=== PATIENT | female | born 1960 | race Caucasian/White ===

== ENCOUNTER → 2022-02-06 12:31 | Outpatient (CLI) | payer MEDICARE, SELFPAY ==
--- NOTE | 2022-02-06 12:40 | XR_ITS ---
FINAL REPORT CLINICAL HISTORY: shoulder pain, fall FINDINGS: LEFT SHOULDER 3 views of the left shoulder were obtained. There is anterior and inferior subluxation of the humeral head in relation to the bony glenoid. No discrete fracture is identified. There is no soft tissue abnormality. IMPRESSION: Subluxation of the humeral head in relation to the bony glenoid. CT scan could be of value to better assess the relationship of the humeral head 2 the bony glenoid. Reviewed, Interpreted and Dictated by Charanjit Elmore MD Transcribed by Maria Elena Dolan Authenticated and [facility]
== END ==
PROVIDERS: PCP Family Medicine; Visit Provider Orthopaedic Surgery
DX: M25.512 Pain in left shoulder (principal)
CPT/HCPCS: 73030

== ENCOUNTER → 2022-05-14 14:28 | Outpatient (CLI) | payer MEDICARE, SELFPAY ==
--- NOTE | 2022-05-14 14:29 | CT_ITS ---
FINAL REPORT CLINICAL HISTORY: lung cancer screening, smokes less than half pack per day for 40+ yrs, no cancer hx FINDINGS: Low-Dose Chest CT Axial images were obtained from the lung apex to the mid abdomen by computed tomography. Low-dose protocol was utilized. CTDI vol (mGy): 2.90 DLP (mGy-cm): 102.38 There is no axillary adenopathy. There is no hilar or mediastinal adenopathy. The heart is proper size. There is moderate to severe coronary artery calcification. There is no pericardial or pleural effusion. Lung window images demonstrate no suspicious infiltrate or nodule. There are mild changes of emphysema with mild pulmonary scarring. There is a calcified granuloma in the left lower lobe. Limited images of the upper abdomen demonstrate postoperative changes from cholecystectomy. IMPRESSION: No suspicious infiltrate or nodule is identified. Modifier S: Moderate to severe coronary artery calcifications Lung RADS category 1S. Recommend 12 month follow-up low-dose chest CT. Reviewed, Interpreted and Dictated by Weston Rockwell III, MD Transcribed by Maria Elena Dolan Authenticated and [facility]
--- NOTE | 2022-05-14 15:50 | PC.NURSE ---
PFT attempted DLCO not completed. Pt has a broken shoulder, her head and neck is basically stuck in a very sideways angle and she is in a wheel chair. Pt has trouble keeping her body and mouth up to the mouth piece of the PFT machine also she has trouble keeping a tight seal around the filter with her mouth. She gave the best effort she is capable of giving. 6 Minute walk test not completed. Pt on room air SPO2 84%. Pt placed her home oxygen on, she wears 3.5 lpm, SPO2 96%. Pt is unable to walk to complete walk test.
== END ==
PROVIDERS: PCP Family Medicine; Visit Provider Internal Medicine Pulmonary Disease
DX: R06.09 Other forms of dyspnea (principal); Z87.891 Personal history of nicotine dependence; Z12.2 Encounter for screening for malignant neoplasm of respiratory organs
CPT/HCPCS: 71271; 94060; 94726; 94729

== ENCOUNTER → 2022-05-19 10:11 | Outpatient (CLI) | payer MEDICARE, SELFPAY ==
--- NOTE | 2022-05-19 10:13 | CA_ITS ---
APPROVED REPORT EXAM: Comprehensive 2D, Doppler, and color-flow Echocardiogram Sap Sd Analyst: Maine Harris CRT Ht: 5 ft 6 in Wt: 118lbs BSA: 1.60 BP: 130/83 mmHg Indications: Pre-Op Clavicle surgery, pHtn, abn ekg, stents, COPD, HTN, HLD, Smoker, home O2, 2D Dimensions LVOT 1.61 cm (M/F) 1.5-2.5 LA Volume 20.70 mL LA Volume Index 12.94 mL/m2 (M/F) 16-34 M-Mode Dimensions RVDd 1.91 cm (0.9-2.6) LA Diam 2.11 cm (1.9-4.0) LVDd 4.16 cm (3.5-5.7) Ao Diam 3.57 cm (2.0-3.7) LVDs 2.92 cm (3.5-5.7) IVSd 1.38 cm (0.6-1.1) PWd 0.74 cm (0.6-1.1) EF (Teich) 57.30% FS 29.80% EDV (Teich) 76.80 mL TAPSE 1.54 (<1.7) ESV (Teich) 32.80 mL LV Diastology E Decel Time 220.00 (160-240 msec) E/A Ratio 0.5 MED E' 6.50 (< 7 cm/sec) MED A' 11.50 cm/s E'/MED E' Ratio 6.09 (>14) LAT E' 5.90 (<10 cm/sec) LAT A' 8.10 cm/s E/LAT E' Ratio 6.71 (>14) Aortic Valve AO Peak GR. 5.50 mmHg Mitral Valve MV E Max Kodak. 40.00 (40-130 cm/s) MV A Velocity 84.00 (40-130 cm/s) E/A Ratio 0.47 MV Decel. Time 220.00 (160-240 ms) MV PHT 64.00 ms Pulmonary Valve PV Peak Velocity 86.00 (50-150 cm/s) Tricuspid Valve TR P. Velocity 173.00 cm/s RAP Estimate 10.00 mmHg RVSP 21.90 mmHg Left Ventricle Technically difficult study because of the patient factors and poor acoustic windows. Left atrium is mildly enlarged, left ventricle is normal size mild concentric left ventricular hypertrophy, estimated ejection fraction 45%, there is abnormal septal motion, grade 1 diastolic dysfunction seen without tissue Doppler evidence of late left atrial pressure. Right Ventricle Right atrium and right ventricle are mildly enlarged with normal contractility. Aortic Valve Aortic valve is minimally thickened and fibrosed there is no aortic stenosis or aortic insufficiency. Mitral Valve Mitral valve is grossly normal, there is trace mitral regurgitation. Tricuspid Valve Tricuspid valve grossly normal, there is trace tricuspid regurgitation, tricuspid regurgitation jet velocity is inadequate for calculation of the right ventricular systolic pressure. Pulmonic Valve Pulmonic valve is poorly visualized. Great Vessels Aortic root is normal size. Inferior vena cava normal 7 normal inspiratory collapse. Pericardium No significant pericardial effusion noted. Conclusion 1. Mild biatrial enlargement, normal left ventricular size, mild concentric left ventricular hypertrophy, estimated ejection fraction 45%, there is abnormal septal motion, grade 1 diastolic dysfunction seen without tissue Doppler evidence of raise left atrial pressure. 2. Mildly enlarged right ventricle with normal contractility. 3. Trace mitral and tricuspid regurgitation. 4. No significant pericardial effusion noted. 5. Inferior vena cava is normal size with normal inspiratory collapse. Electronically signed by : Jose Cruz Floyd MD 05/19/2022 20:45:45
== END ==
PROVIDERS: PCP Family Medicine; Visit Provider Nurse Practitioner Family
DX: F17.200 Nicotine dependence, unspecified, uncomplicated (principal); I25.10 Atherosclerotic heart disease of native coronary artery without angina pectoris; J44.9 Chronic obstructive pulmonary disease, unspecified; R06.09 Other forms of dyspnea; Z01.810 Encounter for preprocedural cardiovascular examination
CPT/HCPCS: 93306

== ENCOUNTER → 2022-05-19 12:44 | Outpatient (POV) | payer MEDICARE, SELFPAY ==
--- NOTE | 2022-05-19 13:11 | EXP.PAIN.OV ---
HPI Data of Consult Patient: new to practice Consult date: 05/19/22 Requesting Physician: Kaylan Dawson APRN Primary Care Provider: Leonora Black Consult Narrative History of present illness: Ms. Sykes is a 61 year old female who presents today as a new patient. She is a referral from Dr. Black' office. Today she rates her pain a 7 out of 10. Patient states her pain is all in her neck and left shoulder. Patient states in January she got up in the middle of night and was on oxygen and that she believes she got tangled up in the cord and fell. Patient did hit a side table that ended up coming down onto her. Patient did end up fracturing a couple of ribs along with her clavicle and transverse process. Patient states she continues to experience significant pain and describes this as a constant pulling, aching sensation that is worse with increased activity or range of motion. Patient states that she cannot touch her shoulder without having extensive pain and that even clothing aggravates it. Patient has been to see Dr. Dawson here at [facility] who states he is planning on proceeding forward with a surgical intervention. Patient does have a significant pulmonology and cardiac history and needs clearance in order to proceed forward with this option. Patient was ordered a stress test and echocardiogram however she states that she went to go to that appointment today and was told it would be 3 hours so she did have to reschedule it. She does state the date is now May 26 for these test. Patient is currently prescribed pregabalin 100 mg 3 times a day, ropinirole 1 mg daily, Percocet 10 mg 4 times a day and Zanaflex. Patient denies any side effects from these medications. She does state that these pills are not touching her pain symptoms. She states she did have a recent bout of pneumonia and was not given steroids due to her upcoming surgery and concerned that it might postpone her treatment. Her she does present today in wheelchair with continuous oxygen on. [facility] is [phone]. Its been reviewed and appropriate. CC: Kaylan Dawson APRN [facility] Disclaimer: The information contained in this section may have been updated after the patient was seen, as this information can be updated by other users. Medical History (Updated 05/19/22 @ 13:44 by Kaylan Dawson APRN) Arteriosclerosis of coronary artery CAD (coronary atherosclerotic disease) Cardiomyopathy Chest pain at rest CHF (congestive heart failure) Chronic respiratory failure Chronic respiratory failure with hypoxia COPD (chronic obstructive pulmonary disease) COPD mixed type COPD mixed type COPD with exacerbation Dyspnea on exertion Dyspnea on exertion Edema Encounter for pre-operative cardiovascular clearance Encounter for screening for malignant neoplasm of lung in current smoker with 30 pack year history or greater Essential (primary) hypertension Exercise hypoxemia Gastro-esophageal reflux disease without esophagitis History of tobacco abuse Hyperlipidemia Hypertension Pulmonary hypertension Right axis deviation Screening for malignant neoplasm of respiratory organ Smoking greater than 30 pack years Subcutaneous nodules Tobacco abuse disorder Tobacco dependence syndrome Surgical History History of section History of tonsillectomy History of total hysterectomy Hx of cholecystectomy Status post arthroscopy of hip Family History Other Cancer Coronary artery disease Hypertension Social History Smoking Status: Current every day smoker alcohol intake: never current occupational status: disabled Travel in the last 8 weeks: None Review of Systems Review of Systems Review of systems:: pertinent systems reviewed and negative unless documented below Review of systems (narrative):
[2022-05-19 13:23] VITALS: BP 120/69; PULSE 87; RESP 18; O2SAT 97; BMI 18.6
== END ==
PROVIDERS: PCP Family Medicine; Visit Provider Nurse Practitioner Family
DX: M54.12 Radiculopathy, cervical region (principal); M54.2 Cervicalgia; M79.18 Myalgia, other site; M25.512 Pain in left shoulder; S22.49XA Multiple fractures of ribs, unspecified side, initial encounter for closed fracture; S42.009A Fracture of unspecified part of unspecified clavicle, initial encounter for closed fracture
CPT/HCPCS: 93306; 99202; G0463

== ENCOUNTER → 2022-05-26 12:54 | Outpatient (CLI) | payer MEDICARE, SELFPAY ==
--- NOTE | 2022-05-26 12:54 | NM_ITS ---
APPROVED REPORT Exam: Nuclear Stress Test Indication: short of breath5 Patient Location: Outpatient Stress Tech: Ginger Harris VT Tech:ROCCO Salinas RT(R)(N) Ht: 5 ft 7 in Wt: 115 lbs Bra Size: a HR: 74 bpm BP: 127/69 mmHg BSA: 1.60 m2 TID: 1.00 BMI: 18.0 History: short of breath Procedure: Patient received 0.4 mg of intravenous Lexiscan, resting heart rate 74 bpm, resting blood pressure 127/69 mmHg, with Lexiscan maximum heart rate achieved was 84 bpm which is Less than 85 % of the maximum predicted heart rate and blood pressure was 129/69 mmHg. With Lexiscan, patient denied any complaint of chest pain. The patient is not able to lay on her belly for prones images. Electrocardiogram Sting electrocardiogram shows sinus rhythm, with Lexiscan there is less than 1.[address] segment depression noted from the baseline EKG. The EKG portion of the Lexiscan is nondiagnostic. Cardiac Stress and Resting SPECT Images: Cardiac Stress and Resting SPECT images were obtained using technetium 99m Myoview 31.1 mCi stress and 10.08 mCi at rest. Gated SPECT analysis of segmental wall motion and calculation of the ejection fraction also done. Prone images were not obtained. Cardiac stress and rest SPECT images show uniform myocardial activity without segmental perfusion abnormality, computer derived ejection fraction is 45% with no regional wall motion abnormality, right ventricle is normal size and contractility. Conclusion: 1. The EKG portion of the Lexiscan is nondiagnostic. 2. No scintigraphic evidence of reversible ischemia seen, computer derived ejection fraction is 45% with no regional wall motion abnormality, right ventricle is normal size and contractility. 3. Normal Lexiscan Myoview study. Electronically signed by : Jose Cruz Floyd MD 05/26/2022 16:20:43
--- NOTE | 2022-05-26 14:14 | CA_ITS ---
APPROVED REPORT Exam: Pharmacologic Technologist: ,, Ht: 5 ft 7 in Wt: 115 lbs BSA: 1.60 m2 HR: 65 bpm BP: 133/79 mmHg Medical History Medications: Lisinopril,,,,, Omeprazole,,,,, Aspirin,,,,, Vitamin D3,,,,, Atorvastatin,,,,, Lyrica,,,,, Carvedilol,,,,, Flonase,,,,, Ropinirole,,,,, PERCOCET,,,,, Albuterol,,,,, Montelukast,,,,, Stress Test Details Test: LEXISCAN Reason for pharmacologic stress test: physical limitation. HR Resting HR: 74 bpm Max Heart Rate (APMHR): 159.443220 bpm Max HR Achieved: 84 bpm Target HR (85% APMHR): 135.841753 bpm % of APMHR: 52.83 Recovery HR: 74 bpm BP Resting BP: 127/69 mmHg Max BP: 129/69 mmHg Recovery BP: 127.0/69.0 mmHg ECG Resting ECG: SR Clinical Exercise duration: 00:05 min Highest Stage Achieved: Stress ECG Conclusion Symptoms: SOA w/ Lexiscan. No chest pain. Arrhythmias/Ectopy: None ST-T Changes: <1.5mm ST Segment depression. Test Summary REST 05:01 . . 74 . 127/ 69 . . Stage 1 00:05 . . 74 . . . Stop exercise at 00:05 RECOVERY 00:16 . . 82 . . . . Electronically signed by : Jose Cruz Floyd MD 05/26/2022 15:21:03
== END ==
LOC: RAD 12:54
PROVIDERS: PCP Family Medicine; Visit Provider Nurse Practitioner Family
DX: F17.200 Nicotine dependence, unspecified, uncomplicated (principal); I25.10 Atherosclerotic heart disease of native coronary artery without angina pectoris; J44.9 Chronic obstructive pulmonary disease, unspecified; R06.09 Other forms of dyspnea; Z01.810 Encounter for preprocedural cardiovascular examination
CPT/HCPCS: 78452; 93017

== ENCOUNTER 2022-07-07 08:43 | Day surgery (SDC) | payer MEDICARE, SELFPAY ==
[2022-07-07] VITALS (12 sets, daily range): BP systolic 96–132; BP diastolic 57–74; PULSE 59–74; RESP 16–20; TEMP 36.1; O2SAT 4–100; BMI 17.9
--- NOTE | 2022-07-07 | IR_ITS ---
APPROVED REPORT Patient Location: Outpatient Door To Door Lead Generation: ROCCO Lynn RT (R) PROCEDURES Left heart catheterization Left ventriculogram Selective coronary angiogram INDICATION Preoperative evaluation, Known coronary artery disease, Abnormal echocardiogram, Worsening dyspnea Informed consent was obtained prior to the procedure. COMPLICATIONS None Estimated Blood Loss: Less than 10 ml TECHNIQUE One percent lidocaine used to anesthetize the right anterior aspect of the wrist. The right radial artery was accessed via the Seldinger technique. A 6 Croatian sheath was placed in the right radial artery. 150 mg magnesium sulfate, 800 mcg of nitroglycerin, 1mg Lidocaine and 5000 U Heparin were given through the arterial sheath. The papa catheter was also used to perform left heart catheterization, left ventriculogram and selective coronary angiogram. During the cardiac catheterization 800 mcg of intracoronary nitroglycerin was administered into the right coronary artery. At the end of the procedure the apparatus was removed the sheath was removed and hemostasis was achieved using TR banding patient was transferred to the postop putting in stable condition ANGIOGRAPHIC RESULTS The left main artery Normal The left anterior descending artery Has proximal 10% luminal irregularities while the mid vessel has a concentric 70% stenosis at a 2.25 mm segment distal to the third diagonal artery. The LAD is long and wraps the apex The circumflex artery Is nondominant and has proximal 10% luminal irregularities with mid vessel 10 to 20% luminal irregularities The right coronary artery Is a dominant vessel and has a proximal eccentric 40 to 50% stenosis followed by widely patent proximal to mid vessel stent with excellent distal transitioning The PACHCEO ventriculogram reveals Normal to slightly hyperdynamic ejection fraction at 65 to 70% The left ventricular end-diastolic pressure 20 mmHg IMPRESSION Coronary disease as described above most notably with a moderate to severe stenosis in the mid LAD which could be stented however stenting will not change patient's perioperative cardiac risk stratification and will only postpone the surgery therefore I do not recommend stenting this vessel. Patient dyspnea most likely stems from pulmonary etiologies. Pulmonary consult is pending Normal slightly hyperdynamic ejection fraction Mildly elevated LVEDP PLAN 1. Continue medical management for coronary disease 2. At some point the right coronary artery and LAD will likely require revascularization however it is unlikely that these lesions are producing angina 3. Treat diastolic dysfunction 4. Continue with pulmonology consult as patient's dyspnea likely stems from pulmonary etiology with ongoing tobacco usage and known COPD 5. Aggressive risk factor modification Electronically signed by : Jefferson Regan MD 07/07/2022 12:26:36
[2022-07-07 09:19] LABS: Basophils % 0.5 % (0.1-2.0); Eosinophils # 0.1 K/mm3 (0.0-0.4); Eosinophils % 1.5 % (0.1-12.0); Hematocrit 37.9 % (37.0-47.0); Lymphocytes # 1.5 K/mm3 (0.7-4.5); Lymphocytes % 18.7 % (10-50); Mean Corpuscular HGB Conc 31.7 g/dL (31.8-35.4); Mean Corpuscular Hemoglobin 24.1 pg (27.0-31.2); Mean Platelet Volume 9.1 fl (7.4-10.4); Monocytes # 0.6 K/mm3 (0.1-1.0); Monocytes % 7.4 % (1.7-9.3); Neutrophils # 5.9 K/mm3 (1.8-7.8); Neutrophils % 71.8 % (37.0-80.0); Platelet Count 269 K/mm3 (142-424); Red Blood Count 4.99 M/mm3 (4.20-5.40); Red Cell Distribution Width 14.7 % (11.5-17.5); White Blood Count 8.2 K/mm3 (4.8-10.8)
[2022-07-07 09:20] LABS: Chloride 91 mmol/L (98-107); Potassium 4.1 mmoL/L (3.5-5.1); Sodium 132 mmol/L (136-145)
[2022-07-07 09:23] LABS: Anion Gap 8.1 mEq/L (5-15); Blood Urea Nitrogen 8 mg/dl (7-17); Carbon Dioxide 37 mmol/L (22.0-30.0); Creatinine Clearance Estimated 47 mL/min (50-200); Estimated Glomerular Filt Rate 102 ml/min (>60); GFR (African American) 123 ML/MIN (>60)
[2022-07-07 09:24] LABS: Calcium 9.2 mg/dl (8.4-10.2); Glucose 98 mg/dl (74-100)
== END 2022-07-07 14:19 | disposition home or self-care (01) ==
PROVIDERS: PCP Family Medicine; Visit Provider Internal Medicine
DX: R93.1 Abnormal findings on diagnostic imaging of heart and coronary circulation (principal); I25.118 Atherosclerotic heart disease of native coronary artery with other forms of angina pectoris; Z95.5 Presence of coronary angioplasty implant and graft; J44.9 Chronic obstructive pulmonary disease, unspecified; F17.210 Nicotine dependence, cigarettes, uncomplicated; Z79.899 Other long term (current) drug therapy; Z79.01 Long term (current) use of anticoagulants; I11.0 Hypertensive heart disease with heart failure; I42.9 Cardiomyopathy, unspecified; I50.9 Heart failure, unspecified; I27.20 Pulmonary hypertension, unspecified; E78.5 Hyperlipidemia, unspecified
CPT/HCPCS: 80048; 85025; 93458; 99152; C1725; C1769; J1644; Q9967

== ENCOUNTER → 2022-08-19 12:53 | Outpatient (CLI) | payer MEDICARE, SELFPAY ==
--- NOTE | 2022-08-19 12:59 | XR_ITS ---
FINAL REPORT CLINICAL HISTORY: lt shoulder pain, fell jan 2022, upcoming shoulder sx FINDINGS: LEFT SHOULDER Four views demonstrate a chronic fracture of the distal clavicle with inferior displacement of the distal fragment as well as the scapula. There are multiple chronic appearing posterior rib fractures present as well. No dislocation is identified. No soft tissue abnormality is seen. IMPRESSION: Chronic fracture of the distal clavicle with inferior displacement of the distal fragment as well as the scapula. Reviewed, Interpreted and Dictated by Weston Rockwell III, MD Transcribed by Azra Michelle Authenticated and [facility]
== END ==
LOC: RAD 12:56
PROVIDERS: PCP Family Medicine; Visit Provider Orthopaedic Surgery
DX: M25.512 Pain in left shoulder (principal)
CPT/HCPCS: 73030

== ENCOUNTER → 2022-11-17 15:23 | Outpatient (POV) | payer MEDICARE, SELFPAY ==
--- NOTE | 2022-11-17 15:53 | EXP.PAIN.SOA ---
[facility] Pain Management SOAP Note Subjective:: Patient is a pleasant 62-year-old female who presents today for follow-up. We are currently treating the patient for chronic neck pain, degenerative disc disease of cervical spine with cervical radiculopathy symptoms, left shoulder pain, left clavicle fracture, myofascial pain, rib fractures. Today she rates her pain a 7 out of 10. Patient denies any new trauma or injury. She does state that the surgery that she was scheduled to have to repair her clavicle fracture was canceled due to her current health. Patient states that the doctor did not think it was worth the increased risk. Patient does state from our last visit that the compounding cream does provide significant improvement. Patient states that she is currently managed with oxycodone 10 mg 3 times a day, pregabalin 100 mg 3 times a day and Flexeril 10 mg 3 times a day from her primary care provider. She does state that the doctor did state that she could no longer prescribe the oxycodone and was recommending she talk to our office about taking over this prescription. Patient has tried Percocet and hydrocodone in the past with minimal relief. She states the muscle relaxer she only takes a quarter of the tablet due to increased drowsiness. She does state that that will help her sleep. Patient does have a significant pulmonary and cardiac history and cannot tolerate any NSAIDs due to this. Her [place] is [phone]. Its been reviewed and appropriate. Review of Systems: General: No recent weight changes, no fever, no sleep disturbances Respiratory: No cough, no shortness of air, no recurring pulmonary infections Cardiovascular/peripheral vascular: No chest pain, no palpitations, no edema, no shortness of breath Gastrointestinal: No new onset incontinence, normal bowel movements reported Genitourinary: No new onset incontinence Musculoskeletal: Neck pain, left shoulder pain Psychiatric: [Normal mood/affect] Neurological: [Denies weakness in extremities], [denies balance issues] Objective:: Physical Exam: General: Alert and oriented x3, no acute distress, pleasant and cooperative Lungs: Respirations even and unlabored, symmetrical chest expansion Eyes: PERRL Musculoskeletal: Flexion and extension of cervical [spine] somewhat guarded secondary to pain, [antalgic gait noted] point tenderness noted along left rhomboid/scapular and left trapezius muscles Neurological: Speech clear, no gross sensory deficit Assessment:: Degenerative disc disease of cervical spine with cervical radiculopathy symptoms, left shoulder pain, left clavicle fracture, myofascial pain, rib fractures, chronic neck pain, chronic pain syndrome Plan:: Patient continues to experience significant pain in her neck and left shoulder related to a previous fall that caused a clavicle fracture along with rib fractures. I have discussed with the patient that due to her limited range of motion of her cervical spine along with her left shoulder she may benefit from a left suprascapular nerve block. Risk and benefits were explained to the patient and she would like to proceed forward with this plan of care. We will send in a prescription of oxycodone 10 mg 3 times a day and provide a 1 month supply of this medication. We will plan on weaning the patient down over the next few months. Patient will be scheduled for a left suprascapular nerve block. Patient has been advised of risks of oversedation with the prescribed medication. Narcan has been offered to the patient in the event of oversedation. Patient has been advised that a family member should also be educated regarding administration of Narcan. Patient has been instructed to contact the clinic with any concerns before the next appointment. Dr. Palmer has reviewed this note and agrees with this plan of care. This note was dictated using voice recognition software and make contain errors or omissions. [facility] Disclaimer: The information cont
[2022-11-17 16:00] VITALS: BP 128/82; PULSE 78; RESP 20; BMI 18.4
== END | disposition home or self-care (01) ==
PROVIDERS: PCP Family Medicine; Visit Provider Nurse Practitioner Family
DX: M50.10 Cervical disc disorder with radiculopathy, unspecified cervical region (principal); M25.512 Pain in left shoulder; S42.002S Fracture of unspecified part of left clavicle, sequela; M79.10 Myalgia, unspecified site; S22.49XS Multiple fractures of ribs, unspecified side, sequela; G89.4 Chronic pain syndrome
CPT/HCPCS: 99212; G0463

== ENCOUNTER → 2022-11-21 13:39 | Outpatient (CLI) | payer MEDICARE, SELFPAY ==
[2022-11-21 14:36] LABS: Amphetamine/Metha Screen,Urine Negative ng/ml (<1000); Barbiturates Screen,Urine Negative ng/ml (<200)
[2022-11-21 14:37] LABS: Benzodiazepines Screen,Urine Negative ng/ml (<200)
[2022-11-21 14:38] LABS: Cannabinoid Screen,Urine Negative ng/ml (<50)
[2022-11-21 14:40] LABS: Cocaine Screen,Urine Negative ng/ml (<300); Methadone Screen,Urine Negative ng/ml (<300)
[2022-11-21 14:44] LABS: Opiate Screen,Urine Negative ng/ml (<300)
[2022-11-21 14:45] LABS: Phencyclidine Screen,Urine Negative ng/ml (<25)
[2022-12-02 04:35] LABS: Opiates Negative (Cutoff=100); Oxycodone (GC/MS) 1200 ng/mL (Cutoff=100); Oxymorphone (GC/MS) 402 ng/mL (Cutoff=100)
== END ==
LOC: LAB 13:40
PROVIDERS: PCP Anesthesiology; Visit Provider Anesthesiology
DX: Z79.891 Long term (current) use of opiate analgesic (principal)
CPT/HCPCS: 80183; 80305; 80361; 80365; G0480

== ENCOUNTER 2022-11-25 12:58 | Day surgery (SDC) | payer MEDICARE, SELFPAY ==
[2022-11-25 13:02] VITALS: BP 106/59; PULSE 73; RESP 18; TEMP 36.6; O2SAT 99; BMI 16.9
[2022-11-25 13:25] VITALS: BP 113/65; PULSE 79; RESP 18; O2SAT 99
--- NOTE | 2022-11-25 13:33 | EXP.PAIN.PRO ---
Procedure Date: 11/25/22 Time: 13:30 Anesthesiologist:: Kwasi Lopez CRNA Complications:: None Pre-procedure Diagnosis:: Degenerative osteoarthritis left shoulder. Left clavicle fracture. Chronic left shoulder pain Post-procedure Diagnosis:: Same. Indications for Procedure:: Patient is a pleasant 62-year-old female who presents today for follow-up. We are currently treating the patient for chronic neck pain, degenerative disc disease of cervical spine with cervical radiculopathy symptoms, left shoulder pain, left clavicle fracture, myofascial pain, rib fractures. Today she rates her pain a 7 out of 10. She does state that the surgery that she was scheduled to have to repair her clavicle fracture was canceled due to her current health. Patient states that the doctor did not think it was worth the increased risk. Procedure Details:: Details of the procedure were explained to the patient. The patient taken the procedure room placed in the sitting position. The area over the left scapula was cleansed using chlorhexidine as a cleansing solution. Using a 25-gauge inch and half needle the superior lateral border of the scapula was injected with 10 cc of a solution containing 5 cc of 0.25% Marcaine +5 cc of 1% lidocaine and 40 mg of Depo-Medrol. Patient tolerated procedure without difficulty. There are no complications. Plan and Disposition:: Patient was discharged without incident. Patient was reevaluated 10 minutes post procedure. She reports 0 pain in the left shoulder at this time.
== END 2022-11-25 13:25 | disposition home or self-care (01) ==
LOC: SC.PAINP 13:00
PROVIDERS: PCP Anesthesiology; Visit Provider Nurse Anesthetist, Certified Registered
DX: M19.012 Primary osteoarthritis, left shoulder (principal); S42.002D Fracture of unspecified part of left clavicle, subsequent encounter for fracture with routine healing; M25.512 Pain in left shoulder; G89.29 Other chronic pain; M50.10 Cervical disc disorder with radiculopathy, unspecified cervical region
CPT/HCPCS: 64418; J1040

== ENCOUNTER → 2022-12-15 13:30 | Outpatient (POV) | payer MEDICARE, SELFPAY ==
[2022-12-15 13:40] VITALS: BP 145/70; PULSE 99; RESP 20; O2SAT 98; BMI 16.9
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
== END | disposition home or self-care (01) ==
PROVIDERS: PCP Family Medicine; Visit Provider Nurse Anesthetist, Certified Registered
DX: M50.10 Cervical disc disorder with radiculopathy, unspecified cervical region (principal); M25.512 Pain in left shoulder; M79.18 Myalgia, other site; G89.4 Chronic pain syndrome; Z99.3 Dependence on wheelchair
CPT/HCPCS: 99212; G0463

== ENCOUNTER 2022-12-30 10:44 | Day surgery (SDC) | payer MEDICARE, SELFPAY ==
[2022-12-30 11:04] VITALS: BP 122/77; PULSE 78; RESP 16; TEMP 36.4; O2SAT 98; BMI 16.6
[2022-12-30 11:22] VITALS: BP 131/52; PULSE 77; RESP 21; O2SAT 96
[2022-12-30 11:24] VITALS: BP 131/52; PULSE 77; RESP 18; O2SAT 96
[2022-12-30 11:30] VITALS: BP 120/77; PULSE 75; RESP 18; O2SAT 98
--- NOTE | 2022-12-30 12:00 | EXP.PAIN.PRO ---
Procedure Date: 12/30/22 Time: 11:44 Anesthesiologist:: Kwasi Lopez CRNA Complications:: None Pre-procedure Diagnosis:: Left trapezius myofascial pain. Post-procedure Diagnosis:: Same. Indications for Procedure:: Patient is a very pleasant 62-year-old female that comes our clinic today for a left trapezius muscle trigger point injection. Patient has essentially torticollis of the left cervical paraspinous muscles including the left trapezius muscle as well. Patient has had extensive posterior cervical fusion several years ago which has resulted into this pathology. She describes the pain in the left cervical spine and left shoulder as constant, dull, sharp, stabbing at times. She rates her pain 9/10. Patient has obvious muscle spasm in the left trapezius muscle. Procedure Details:: Details of the procedure explained to the patient. The patient taken the procedure room and placed in the sitting position. The area over the left trapezius muscle was cleaned using chlorhexidine as a cleansing solution. Using a 25-gauge inch and half needle the left trapezius muscle was injected in 3 separate areas with 4 cc of solution in each area after negative aspiration. The solution containing 0.25% Marcaine +1% lidocaine and 40 mg of Depo-Medrol. Patient tolerated procedure without difficulty. There are no complications. Plan and Disposition:: Patient was discharged without incident.
== END 2022-12-30 11:30 | disposition home or self-care (01) ==
PROVIDERS: PCP Family Medicine; Visit Provider Nurse Anesthetist, Certified Registered
DX: M79.18 Myalgia, other site (principal)
CPT/HCPCS: 20552; J1040

== ENCOUNTER → 2023-01-14 11:45 | Outpatient (POV) | payer MEDICARE, SELFPAY ==
--- NOTE | 2023-01-14 11:54 | EXP.PAIN.SOA ---
[facility] Pain Management SOAP Note Subjective:: Patient is a pleasant 62-year-old female who presents today for follow-up of left trapezius trigger point injections on 12/30/2022. We are currently treating the patient for chronic neck pain, degenerative disc disease of cervical spine with cervical radiculopathy symptoms, left shoulder pain, left clavicle fracture, myofascial pain, rib fractures. Today she rates her pain a 8 out of 10. Patient denies any new trauma or injury. She does state that the trigger point injections did provide approximately 100% relief on the day of the injection however a couple of days later there was a rainy day that she had significant stiffness. She states after the running subsided she did return back to her previous state with improvement within her shoulder muscle. She does states she is back to her baseline today and states a lot of her pain is also at her low back and left hip. She does describe this as an aching, burning, stinging sensation that is worse with increased ambulation or activity. She does state it interferes with activities of daily living such as cooking and cleaning. She is currently managed with oxycodone 10 mg 3 times a day from our office and pregabalin 100 mg 3 times a day and Flexeril 10 mg 3 times a day from her primary care provider. She denies any side effects from this medications. Previously she did state that she was taking more of her pain medication than prescribed. She does have a significant pulmonary and cardiac history and cannot tolerate any NSAIDs due to this. Her Forrest has been reviewed. Review of Systems: General: No recent weight changes, no fever, no sleep disturbances Respiratory: No cough, no shortness of air, no recurring pulmonary infections Cardiovascular/peripheral vascular: No chest pain, no palpitations, no edema, no shortness of breath Gastrointestinal: No new onset incontinence, normal bowel movements reported Genitourinary: No new onset incontinence Musculoskeletal: Low back pain, left hip pain Psychiatric: [Normal mood/affect] Neurological: [Denies weakness in extremities], [denies balance issues] Objective:: Physical Exam: General: Alert and oriented x3, no acute distress, pleasant and cooperative Lungs: Respirations even and unlabored, symmetrical chest expansion Eyes: PERRL Musculoskeletal: Flexion and extension of lumbar point tenderness along left SI with positive left Rosario's, Kareem's, Gaenslen's, compression and distraction exam [spine] somewhat guarded secondary to pain, [antalgic gait noted] Neurological: Speech clear, no gross sensory deficit Assessment:: Degenerative disc disease of cervical spine with cervical radiculopathy symptoms, left shoulder pain, left clavicle fracture, myofascial pain, left rib fractures Plan:: Patient is experiencing worsening pain in her low back along her left hip with limited range of motion. Patient had a positive left Rosario's, Kareem's, Gaenslen's, compression and distraction exam as well as point tenderness along her left SI. I have discussed with the patient that she may benefit from left sacroiliac joint injection. Risk and benefits were discussed with the patient and she would like to proceed forward with this plan of care. Patient is not on any blood thinners. I have also counseled the patient that she has to follow her pain medication instructions and only take this 3 times a day. I have discussed with her if this continues to be an issue as time goes on we may not be able to continue her current medications. I will refill her oxycodone 10 mg 3 times a day and provide a 1 month supply of these medications however this will not be able to fill until 02/01 from her previous prescription date. Patient will be scheduled for a left SI injection. Patient has been instructed to contact the clinic with any concerns before the next appointment. Dr. Palmer has reviewed this note and agrees with this plan of care. This note was dictated u
[2023-01-14 15:29] VITALS: BP 89/50; PULSE 96; RESP 19; O2SAT 97; BMI 18.4
== END | disposition home or self-care (01) ==
LOC: ER 11:46 → SC.PAIN 14:32
PROVIDERS: Visit Provider Nurse Practitioner Family
DX: M50.10 Cervical disc disorder with radiculopathy, unspecified cervical region (principal); M25.512 Pain in left shoulder; S42.002S Fracture of unspecified part of left clavicle, sequela; M79.10 Myalgia, unspecified site; S22.42XS Multiple fractures of ribs, left side, sequela; M46.1 Sacroiliitis, not elsewhere classified
CPT/HCPCS: 99212; G0463

== ENCOUNTER 2023-02-03 10:34 | Day surgery (SDC) | payer MEDICARE, SELFPAY ==
[2023-02-03 10:52] VITALS: BP 81/56; PULSE 91; RESP 16; TEMP 36.6; O2SAT 100; BMI 15.5
--- NOTE | 2023-02-03 11:07 | EXP.PAIN.PRO ---
Procedure Date: 02/03/23 Time: 10:40 Anesthesiologist:: Kwasi Lopez CRNA Complications:: None Pre-procedure Diagnosis:: Left sacroiliitis. Post-procedure Diagnosis:: Same. Indications for Procedure:: Patient is a very pleasant 62-year-old female comes our clinic today for a left sacroiliac joint injection. Patient reports left posterior hip pain as well as left low back pain. Patient describes the pain as constant, dull, aching. She rates the pain 7/10. Patient essentially is nonambulatory. She is either sitting at home or in a wheelchair when mobile. Procedure Details:: Procedure: Left sacroiliac injection under fluoroscopy Informed consent was obtained and the risk and benefits of the procedure were explained to the patient.~ The patient was taken to the procedure room and noninvasive monitors were placed including noninvasive blood pressure cuff and pulse oximeter.~ The patient was placed prone on the procedure table.~ The~ left hip was cleansed using Betadine as a cleansing solution.~ C-arm fluorosocpy was used to view the left SI joint.~ The skin and subcutaneous tissues were anesthetized using Lidocaine 1.5% and a 25-gauge needle.~ After this, a 22-gauge spinal needle was inserted under fluoroscopic guidance into the inferior aspect of the left SI joint.~ Omnipaque dye was injected and a good spread was seen throughout the joint.~ After this, approximately 5 mL of bupivacaine 0.25% and Depo-Medrol 40 mg was incrementally injected into the sacroiliac joint.~ The patient tolerated the procedure well with no complications.~ The patient was observed in the Pain Clinic for a period of 30-45 minutes, then discharged home neurologically intact.~ Plan and Disposition:: Patient was discharged without incident.
[2023-02-03 11:09] VITALS: BP 83/47; PULSE 87; RESP 16; O2SAT 100
== END 2023-02-03 10:52 | disposition home or self-care (01) ==
PROVIDERS: PCP Family Medicine; Visit Provider Nurse Anesthetist, Certified Registered
DX: M46.1 Sacroiliitis, not elsewhere classified (principal)
CPT/HCPCS: 27096; G0260

== ENCOUNTER → 2023-02-19 13:29 | Outpatient (POV) | payer MEDICARE, SELFPAY ==
--- NOTE | 2023-02-19 14:17 | EXP.PAIN.SOA ---
[facility] Pain Management SOAP Note Subjective:: Patient is a pleasant 62-year-old female who presents today for follow-up of left SI injection on 02/03/2023 and medication refill. We are currently treating the patient for degenerative disc disease of cervical spine with cervical radiculopathy symptoms, left shoulder pain, left clavicle fracture, myofascial pain, rib fractures, sacroiliitis. Today she rates her pain a 6 out of 10. Patient denies any new trauma or injury. Patient does state that she has had 100% improvement in her low back pain however now she notices all her pain in and around her hip and groin. Patient does describe this as an aching, throbbing sensation that is worse with increased activity or ambulation. She does state the pain makes it hard to perform ADLs such as cooking or cleaning and that she cannot bend over due to the worsening hip pain. Patient is currently managed with oxycodone 10 mg 3 times a day from our office and pregabalin 100 mg 3 times a day and Flexeril 10 mg 3 times a day from her PCP. She denies any side effects from these medications. Her Forrest has been reviewed and is appropriate. Review of Systems: General: No recent weight changes, no fever, no sleep disturbances Respiratory: No cough, no shortness of air, no recurring pulmonary infections Cardiovascular/peripheral vascular: No chest pain, no palpitations, no edema, no shortness of breath Gastrointestinal: No new onset incontinence, normal bowel movements reported Genitourinary: No new onset incontinence Musculoskeletal: Left hip pain Psychiatric: [Normal mood/affect] Neurological: [Denies weakness in extremities], [denies balance issues] Objective:: Physical Exam: General: Alert and oriented x3, no acute distress, pleasant and cooperative Lungs: Respirations even and unlabored, symmetrical chest expansion Eyes: PERRL Musculoskeletal: Flexion and extension of left hip somewhat guarded secondary to pain, [antalgic gait noted] Neurological: Speech clear, no gross sensory deficit Assessment:: Degenerative disc disease of cervical spine and cervical radiculopathy symptoms, left shoulder pain, left clavicle fracture, myofascial pain, rib fractures, sacroiliitis, left hip pain Plan:: Patient is experiencing significant pain in her left hip with limited range of motion. I have discussed with the patient that she may benefit from a left hip intra-articular injection. Risk and benefits were discussed with the patient and she would like to proceed forward with this plan of care. I will also send in refills of her oxycodone 10 mg 3 times a day and provide a 1 month supply of this medication. Patient will be scheduled for a left hip intra-articular injection. Patient has been advised of risks of oversedation with the prescribed medication. Narcan has been offered to the patient in the event of oversedation. Patient has been advised that a family member should also be educated regarding administration of Narcan. Patient has been instructed to contact the clinic with any concerns before the next appointment. Dr. Palmer has reviewed this note and agrees with this plan of care. This note was dictated using voice recognition software and make contain errors or omissions. [facility] Disclaimer: The information contained in this section may have been updated after the patient was seen, as this information can be updated by other users. Medical History Abnormal echocardiogram Arteriosclerosis of coronary artery CAD (coronary atherosclerotic disease) Cardiomyopathy Chest pain at rest CHF (congestive heart failure) Chronic respiratory failure Chronic respiratory failure with hypoxia COPD (chronic obstructive pulmonary disease) COPD mixed type COPD mixed type COPD with exacerbation Dyspnea on exertion Dyspnea on exertion Edema Encounter for pre-operative cardiovascular clearance Encounter for screening for phil
[2023-02-19 14:23] VITALS: BP 127/76; PULSE 64; RESP 18; O2SAT 100; BMI 18.1
== END ==
PROVIDERS: PCP Family Medicine; Visit Provider Nurse Practitioner Family
DX: M50.10 Cervical disc disorder with radiculopathy, unspecified cervical region (principal); M25.512 Pain in left shoulder; S42.002S Fracture of unspecified part of left clavicle, sequela; M79.10 Myalgia, unspecified site; S22.49XS Multiple fractures of ribs, unspecified side, sequela; M46.1 Sacroiliitis, not elsewhere classified; M25.552 Pain in left hip
CPT/HCPCS: 99212; G0463